=== PATIENT | female | born 1965 | race Caucasian/White ===

== ENCOUNTER 2017-03-21 15:24 | Emergency (ER) | payer MEDICAID ==
[2017-03-21 15:33] VITALS: BP 141/75; PULSE 84; RESP 16; TEMP 98.1; O2SAT 97
--- NOTE | 2017-03-21 15:35 | EDPHY ---
H & P Stated Complaint: Infect @ extraction site x 1 wk;states she has shingles;wants meds for both HPI/ROS: HPI CHIEF COMPLAINT: Dental pain, possible dental infection, ?shingles HISTORY OF PRESENT ILLNESS: This patient very pleasant 51-year-old female denies any significant medical history, presents emergency room with right upper dental pain from a tooth extraction site. She states that last week or approximately 5 days ago she had a dental extraction of her 5th tooth, she states that she has had progressive worsening pain she is concerned she may have an infection. She did call her dentist was prescribed amoxicillin however she is allergic to penicillins and request a antibiotic here in the emergency room. She distally tells me that she thinks she has shingles on her gluteus. [facility] and prescribed acyclovir and ibuprofen. She states the lesion on her gluteus has been there for 5 weeks. But not healing. She denies blisters or vesicles. She has not had a fever. She would like an antibiotic that may cover the skin lesion on her gluteus as well as her dental infection. I did explain the patient should follow up with her dentist in the next 24 hours. She understands. Past Medical History: Denies significant medical history Past Surgical History: Denies significant surgical history except for recent dental extraction. Social History: Denies daily use of drugs alcohol tobacco products Family History: Noncontributory ROS REVIEW OF SYSTEMS: A comprehensive 10 point review of systems is otherwise negative aside from elements mentioned in the history of present illness. Exam Constitutional triage nursing summary reviewed, vital signs reviewed, awake/ alert. Eyes normal conjunctivae and sclera, EOMI, PERRLA. HENT oropharynx: Dental site #5, recent tooth extraction present, sutures in place. no signs of Darshan's. No gumline abscess, atraumatic, moist mucus membranes, no epistaxis, neck supple/ no meningismus, no raccoon eyes. Respiratory clear to auscultation bilaterally, normal breath sounds, no respiratory distress, no wheezing. Cardiovascular rate normal, regular rhythm, no murmur, no edema, distal pulses normal. Gastrointestinal soft, non-tender, no rebound, no guarding, normal bowel sounds, no distension, no pulsatile mass. Genitourinary no CVA tenderness. Musculoskeletal no midline vertebral tenderness, full range of motion, no calf swelling, no tenderness of extremities, no meningismus, good pulses, neurovascularly intact. Skin gluteus full superior aspect 2 cm x 3 cm area of erythema, no vesicles no blisters, no induration no fluctuance. pink, warm, & dry, skin atraumatic. Neurologic awake, alert and oriented x 3, AAOx3, moves all 4 extremities equally, motor intact, sensory intact, CN II-XII intact, normal cerebellar, normal vision, normal speech. Psychiatric normal mood/affect. Heme/Lymph/Immune no lymphadenopathy. Differential Diagnosis:includes but is not limited to in a particular order dental extraction site infection, dental extraction site pain, cellulitis of the gluteal fold, MRSA infection Medical Decision Making: Plan for this patient will place patient on clindamycin this should cover her gluteus erythematous region, that may be staph infection, also this will cover oropharynx dental site extraction. She understands to follow up with her primary care doctor as well as her dentist. Re-evaluation: 1550: This time this patient appears well nontoxic no acute distress. Will cover for dental extraction tooth infection site as well as area of redness on her gluteus fold. I do recommend close follow-up with primary care doctor as well as follow-up care for her recent dental extraction. She understands. Patient understands clindamycin cause diarrhea I do recommend she takes a full stomach, and yogurt. Source: Patient - Personal History LMP (Females 10-55): Post Menopausal Current Tetanus Diphtheria and Acellular Pertussis (TDAP): Yes - Medical/Surgical History Other PMH: past hx shingles - Social History Smoking Status: Never smoked Constitutional: Initial Vital Signs Temperature (C) 36.7 C 03/21/17 15:25 Heart Rate 84 03/21/17 15:25 Respiratory Rate 16 03/21/17 15:25 Blood Pressure 141/75 H 03/21/17 15:25 O2 Sat (%) 97 03/21/17 15:25 O2 Delivery Mode Room Air Allergies/Adverse Reactions: Penicillins Allergy (Mild, Verified 03/21/17 15:33) Rash Home Medications: Medication Instructions Recorded Acyclovir [Zovirax 400 mg (*)] 400 mg PO BID 03/21/17 Clindamycin HCl [Clindamycin] 300 mg PO TID #30 cap 03/21/17 Departure - Departure Disposition: Home, Routine, Self-Care Clinical Impression: Dental infection Condition: Good Instructions: Toothache (ED), Cellulitis (ED) Additional Instructions: 1. Please follow up with your primary care doctor. 2. Return emergency room if you have any worsening symptoms questions or concerns. 3.. I also recommend he follow up closely with her dentist. 4.I recommend that you take your antibiotic with yogurt and on full stomach. Prescriptions: Clindamycin HCl [Clindamycin] 300 mg PO TID #30 cap
== END 2017-03-21 16:01 | disposition home or self-care (01) ==
DX: K04.7 Periapical abscess without sinus (principal)

== ENCOUNTER 2018-01-13 21:13 | Emergency (ER) | payer MEDICAID ==
[2018-01-13 21:32] VITALS: BP 157/87; PULSE 88; RESP 17; TEMP 98.6; O2SAT 93
[2018-01-13] MEDS ORDERED: OXYCODONE/APAP 5/325MG PREPACK#4 BTL TAKEHOME ONE ×2 (21:58→21:59)
--- NOTE | 2018-01-13 21:59 | EDPHY ---
HPI/HX/ROS/PE/MDM Narrative: CHIEF COMPLAINT: "I need dental work and I'm trying to look up a dentist so I can see someone tomorrow" HPI: The patient is a 52 y/o female complaining of persistent right upper molar dental pain for several weeks. She was evaluated by her dentist for this pain and was told her teeth looked normal, so she left that dentist and is trying to find a new one. Her PCP prescribed her clindamycin for possible infection. She has been using clonazepam and Motrin for pain. She denies fever or other acute complaints. She is here requesting pain medication so she can sleep tonight. REVIEW OF SYSTEMS: Aside from elements discussed in the HPI, a comprehensive 10-point review of systems was reviewed and is negative. PMH: Knee injury. SOCIAL HISTORY: Medicaid patient. PCP: Dr. Ni PHYSICAL EXAM: General:Patient is alert, in no acute distress. ENT:Eyes are normal to inspection. ENT inspection normal. No gum swelling, no discharge, no tooth fracture. No evidence of abscess. Neuro: Oriented x3. Normal motor function. Normal sensory function. ED Course: This is a 52 y/o female requesting pain medication for several weeks of dental pain. Her exam is unremarkable with no evidence of trauma, severe infection, or abscess. She will be discharged with Percocet and referral to [facility] for follow up. She is happy with this plan. General Time Seen by Provider: 01/13/18 21:46 Initial Vital Signs: Initial Vital Signs Temperature (C) 37 C 01/13/18 21:28 Heart Rate 88 01/13/18 21:28 Respiratory Rate 17 01/13/18 21:28 Blood Pressure 157/87 H 01/13/18 21:28 O2 Sat (%) 93 01/13/18 21:28 O2 Delivery Mode Room Air Allergies/Adverse Reactions: Penicillins Allergy (Mild, Verified 03/21/17 15:33) Rash amoxicillin Allergy (Verified 01/13/18 21:33) Home Medications: Medication Instructions Recorded Clindamycin HCl [Clindamycin] 300 mg PO TID #30 cap 03/21/17 Departure - Departure Disposition: Home, Routine, Self-Care Clinical Impression: Pain, dental Condition: Good Instructions: Oxycodone/Acetaminophen (By mouth), Toothache (ED) Additional Instructions: 1. Use Percocet as prescribed as needed for severe pain. 2. Follow up with dentist as planned. [facility] will contact you to schedule an appointment. 3. Return to the ED for worsening of condition. Referrals: Cecilia Ni [Primary Care Provider] - As per Instructions [facility] [Outside] - As per Instructions Report Scribed for: Oniel Love Report Scribed by: Ainsley Garza Date of Report: 01/13/18 Time of Report: 21:59 Physician Review and Approval Statement: Portions of this note were transcribed by an ED scribe. I personally performed the history, physical exam, and medical decision making; and confirm the accuracy of the information in the transcribed note.
== END 2018-01-13 22:10 | disposition home or self-care (01) ==
DX: K08.89 Other specified disorders of teeth and supporting structures (principal)

== ENCOUNTER → 2018-01-24 | Outpatient (CLI) | payer MEDICAID | LOC: FIMAGING 19:22 | PROVIDERS: ATTEND Physician Assistant | DX: M22.42 Chondromalacia patellae, left knee (principal) ==

== ENCOUNTER → 2018-02-14 | Outpatient (CLI) | payer MEDICAID | LOC: FIMAGING 14:34 | DX: Z12.31 Encounter for screening mammogram for malignant neoplasm of breast (principal) ==